=== PATIENT | female | born 1970 | race Caucasian/White ===

== ENCOUNTER → 2018-06-19 | Outpatient (CLI) | payer BC ==
--- NOTE | 2018-06-20 12:30 | Diagnostic Imaging Report ---
INDICATION: Screening. EXAMINATION: Digital mammogram bilateral screening with 3-D tomosynthesis. The current study was also evaluated with a Computer Aided Detection (CAD) system. This study was compared to the prior exam of 01/13/2017. At this time, there are no current complaints. FINDINGS: The fibroglandular tissue in both breasts is heterogeneously dense. This does limit the sensitivity of this exam. Overall, there does not appear to have been any significant change when compared to the prior study. No primary or secondary sign of malignancy is noted. IMPRESSION: There is no radiographic evidence for malignancy. ACR BI-RADS Category 1: Negative. Result letter will be mailed to the patient. Note: At least 10% of breast cancer is not imaged by mammography. Dictated by: Dictated on workstation # [id number]
== END ==
LOC: RAD 07:43
PROVIDERS: ATTEND Nurse Practitioner Primary Care
DX: Z12.31 Encounter for screening mammogram for malignant neoplasm of breast (principal)
CPT/HCPCS: 77067

== ENCOUNTER → 2020-05-08 | Outpatient (CLI) | payer BC, OTHER ==
--- NOTE | 2020-05-08 17:10 | Diagnostic Imaging Report ---
INDICATION: Routine screening. COMPARISON is made with prior mammograms of 06/29/2018 and 01/13/2017. 2-D and 3-D bilateral screening mammography was performed with CAD. Scattered fibroglandular densities are identified bilaterally. The parenchymal pattern is stable. No mass or malignant appearing microcalcifications are seen. Axillae are unremarkable. IMPRESSION: BI-RADS Category 1. No mammographic features suspicious for malignancy are identified. ACR BI-RADS Category 1: Negative. Result letter will be mailed to the patient. Note: At least 10% of breast cancer is not imaged by mammography. Dictated by: Dictated on workstation # [id number]
== END ==
LOC: RAD 08:00
PROVIDERS: ATTEND Nurse Practitioner Family
DX: Z12.31 Encounter for screening mammogram for malignant neoplasm of breast (principal)
CPT/HCPCS: 77063; 77067

== ENCOUNTER 2021-03-02 10:42 | Outpatient (CLI) | payer OTHER ==
[~2021-03-02] VITALS: Ht 162.6 cm; Wt 98.4 kg
[2021-03-02] MEDS ORDERED: UMEC62.5 IH (11:56)
[2021-03-02] MEDS ORDERED: FLUO20CA42 PO (11:56)
[2021-03-02] MEDS ORDERED: RT-ALBUINH IH (11:56)
[2021-03-02] MEDS ORDERED: FLUT16SP22 NS (11:56)
[2021-03-02] MEDS ORDERED: PSEU120T21 PO (11:56)
[2021-03-02] MEDS ORDERED: VITA100033 PO (11:56)
[2021-03-02] MEDS ORDERED: CETI10TA24 PO (11:56)
[2021-03-02] MEDS ORDERED: CRAN500T3 PO (11:56)
[2021-03-02] MEDS ORDERED: MULT-1136 PO (11:56)
== END 2021-03-02 14:26 | disposition home or self-care (01) ==
LOC: PREOP 10:42
PROVIDERS: ATTEND Surgery
DX: Z01.818 Encounter for other preprocedural examination (principal)

== ENCOUNTER 2021-03-10 08:43 | Day surgery (SDC) | payer OTHER ==
[~2021-03-10] VITALS: Ht 163 cm; Wt 98.0 kg
[2021-03-10] VITALS (7 sets, daily range): BP systolic 93–125; BP diastolic 51–71
[~2021-03-10 08:43] MED LIST: CETI10TA24 PO; CRAN500T3 PO; FLUO20CA42 PO; FLUT16SP22 NS; MULT-1136 PO; PSEU120T21 PO; RT-ALBUINH IH; UMEC62.5 IH; VITA100033 PO
[2021-03-10] MEDS ORDERED: LACTATED RINGERS 1,000 ML IV ONE ×2 (08:48→11:24)
[2021-03-10] MEDS ORDERED: LACTATED RINGERS 1,000 ML IV STA (08:52)
[2021-03-10] MEDS ORDERED: MIDAZOLAM 2 MG/2 ML (VERSED) VIAL ONE (11:19)
[2021-03-10] MEDS ORDERED: PROPOFOL INJECTION 50 ML IV ONE (11:19)
--- NOTE | 2021-03-10 11:59 | Progress Note-Post Operative ---
Post-Operative Progess Note Surgeon (s)/School Cleaner (s) Surgeon MARIVEL BURRELL DO School Cleaner: na Pre-Operative Diagnosis screening Post-Operative Diagnosis normal Procedure & Operative Findings Date of Procedure 03/10/21 Procedure Performed/Findings colonoscopy Anesthesia Type per graduate school dean Estimated Blood Loss Estimated blood loss (mL): none Specimens/Packing Specimens Removed none MARIVEL BURRELL DO Mar 10, 2021 11:59
--- NOTE | 2021-03-10 12:02 | Discharge Inst-Simple/Standard ---
Discharge Inst-Standard Patient Instructions/Follow Up Plan of Care/Instructions/FU: 10 years repeat colonoscopy if family history of colon cancer or personal history of polyps then 5 years. any issues before that be seen at that time. Activity as Tolerated: Yes Discharge Diet: Regular Diet MARIVEL BURRELL DO Mar 10, 2021 12:02
--- NOTE | 2021-03-10 13:00 | Anesthesia-General Post-Op ---
General Patient Condition Mental Status/LOC: Same as Preop Cardiovascular: Satisfactory Nausea/Vomiting: Absent Respiratory: Satisfactory Pain: Controlled Complications: Absent Post Op Complications Complications None Follow Up Care/Instructions Patient Instructions None needed. Anesthesia/Patient Condition Patient Condition Patient is doing well, no complaints, stable vital signs, no apparent adverse anesthesia problems. No complications reported per nursing. D/C home per [facility] Criteria: Yes RICKEY NIXON CRNA Mar 10, 2021 13:00
--- NOTE | 2021-03-10 18:09 | OPERATIVE REPORT ---
DATE OF SERVICE: 03/10/2021 PREOPERATIVE DIAGNOSIS: Screening colonoscopy. POSTOPERATIVE DIAGNOSIS: Normal colon. PROCEDURE: Colonoscopy. SURGEON: Marivel Grissom DO ANESTHESIA: Per DISTRIBUTION OPERATIONS MANAGER. ESTIMATED BLOOD LOSS: None. COMPLICATIONS: None. INDICATIONS: The patient is a 50-year-old female needing screening colonoscopy. She understands risks and benefits of procedure and wished to proceed. Consent was signed in the chart. DESCRIPTION OF PROCEDURE: The patient was taken to the endoscopy suite, placed in left lateral recumbent position. Timeout was performed. Digital rectal exam was performed. There were no palpable polyps, masses or ulcerations. Scope was inserted in the rectum and advanced all the way to cecum with minimal difficulty. Prep was adequate. Scope was then slowly retracted back. No polyps, masses or ulcerations in the cecum, ascending, transverse, descending and sigmoid colon. Once in the rectum, scope was retroflexed noting no other pathology. Scope was returned to its normal position, slowly withdrawn until completely removed. The patient tolerated procedure well without any complications, taken to recovery room in stable condition. RECOMMENDATIONS: The patient will need repeat colonoscopy in 10 years unless family history of colon cancer, which then be 5 years or personal history of colon polyps, which would be 5 years. Any problems prior to that be reevaluated at that time. Job ID: [id number] DocumentID: [id number] Dictated Date: 03/10/2021 12:30:34 Card Checker Date: 03/10/2021 18:08:31 Dictated By: MARIVEL GRISSOM DO
== END 2021-03-10 12:33 | disposition home or self-care (01) ==
LOC: ENDO 08:43
PROVIDERS: ATTEND Surgery
DX: Z12.11 Encounter for screening for malignant neoplasm of colon (principal); J44.9 Chronic obstructive pulmonary disease, unspecified; F17.210 Nicotine dependence, cigarettes, uncomplicated; F32.A Depression, unspecified; Z79.899 Other long term (current) drug therapy; Z80.3 Family history of malignant neoplasm of breast; Z82.49 Family history of ischemic heart disease and other diseases of the circulatory system
CPT/HCPCS: 84703

== ENCOUNTER → 2021-05-15 | Outpatient (CLI) | payer OTHER ==
--- NOTE | 2021-05-15 16:36 | Diagnostic Imaging Report ---
EXAMINATION: CT abdomen and pelvis without contrast. TECHNIQUE: Multiple contiguous axial images were obtained through the abdomen and pelvis without the use of intravenous contrast. All CT scans use one or more of the following dose optimizing techniques: automated exposure control, MA and/or KvP adjustment based on patient size and exam type or iterative reconstruction. HISTORY: LLQ ABD PAIN. COMPARISON: None available. FINDINGS: Lung bases: The lung bases are clear. Solid organs: The liver is normal. The gallbladder is normal. There is no biliary ductal dilation. Pancreas is normal. Spleen is normal. Adrenal glands are normal. The kidneys are normal without visualized calculus or hydronephrosis. Bowel: The stomach and small bowel are normal without obstruction. The colon and appendix are normal. Peritoneum: There is no intraperitoneal free fluid or free air. No suspicious lymphadenopathy. Vasculature: Normal without aneurysm. Musculoskeletal: No suspicious osseous lesion or compression fracture. Pelvis: The uterus and adnexa are normal. The urinary bladder is normal. IMPRESSION: No acute abnormality within the abdomen or pelvis. No visualized renal calculus or hydronephrosis. Dictated by: Dictated on workstation # [id number]
== END ==
LOC: RAD 15:15
PROVIDERS: ATTEND Nurse Practitioner Family
DX: R10.32 Left lower quadrant pain (principal)
CPT/HCPCS: 74176

== ENCOUNTER → 2021-11-11 | Outpatient (CLI) | payer OTHER ==
[~2021-11-11] MED LIST changes: -CRAN500T3 PO; +CRAN500T4 PO
[2021-11-11 14:04] VITALS: BP 134/70
--- NOTE | 2021-11-11 17:23 | Cardiology Stress Test Report ---
Stress Test Report Date of Procedure/Referring: Date of Procedure: Nov 11, 2021 [facility] Admitting Physician Admitting Physician: Attending Physician: Anton Bal DO Indications: CP Baseline Heart Rate: 67 Baseline Blood Pressure: Blood Pressure Systolic: 134 Blood Pressure Diastolic: 70 Baseline EKG: Baseline EKG: LBBB Summary/Conclusion: Summary: In summary, the patient started exercising with a baseline heart rate, blood pressure and EKG mentioned above Patient was able to exercise for a total of 3minutes on Bandar protocol, METs 4.6 Maximum heart rate 165 Maximum blood pressure 169/68 Stress EKG, Minimal nondiagnostic changes Recovery EKG , Return to baseline Conclusion: 1. Poor exercise tolerance for a total of 3 minutes on standard Bandar protocol, 4.6 METS achieving 97% of maximum expected heart rate 2. Baseline left bundle branch block persisted during test with nondiagnostic changes 3. Appropriate heart rate and blood pressure response to exercise return to baseline during recovery 4. Recommend evaluating Lexiscan Myoview stress test Copy Copies To 1: ANTON BAL DO Copies To 2: [facility]/ LISA HYATT MD Nov 11, 2021 17:23
== END ==
LOC: CARD 14:00
PROVIDERS: ATTEND Pediatrics
DX: R07.89 Other chest pain (principal)
CPT/HCPCS: 93017

== ENCOUNTER → 2021-12-04 | Outpatient (CLI) | payer OTHER ==
[~2021-12-04] VITALS: Ht 162.6 cm; Wt 95.5 kg
[~2021-12-04] MED LIST changes: +LIDOCAINE 1% INJ 10 ML VIAL INJ ONE
--- NOTE | 2021-12-04 12:57 | Diagnostic Imaging Report ---
INDICATION: Abnormal outside mammogram and ultrasound demonstrating suspicious nodules at the 2:00 and 3:00 location. PROCEDURE: The patient presents for ultrasound-guided biopsy. Patient was brought to the sonographic suite, placed on the table in the supine position. Ultrasound imaging of the left breast was performed to evaluate appropriate entry site. The lesion noted on the outside study at 3:00 location could not be detected today. Only normal-appearing fibroglandular tissue at the 3:00 location is identified. Therefore, biopsy was not performed at the 3:00 location. The suspicious region of hypoechogenicity and shadowing at the 2:00 location, 3 cm from the nipple was biopsied. A total of 4 core samples were obtained utilizing the 14-gauge Achieve needle. A marker clip was then deployed. Hemostasis was obtained using manual compression. The patient tolerated the procedure well and was sent for a post procedure mammogram in satisfactory condition. IMPRESSION: 1. Successful ultrasound-guided core biopsy of the area of hypoechogenicity and shadowing at the 12:00 location of the left breast, 8 cm from the nipple. Pathology results are currently pending. 2. The suspicious area at the 3:00 location could not be visualized on today's study, therefore, biopsy was not performed. Continued close interval follow-up of this area would be recommended. A repeat left mammogram and left breast ultrasound in 6 months would be recommended. Dictated by: Dictated on workstation # [id number]
--- NOTE | 2021-12-04 15:21 | Diagnostic Imaging Report ---
INDICATION: Left breast nodule, status post ultrasound guided biopsy. Unilateral left 2-D CC and ML mammography was performed after patient underwent left breast biopsy. There is a marker clip in the upper and outer aspect of the left breast. IMPRESSION: Marker clip placed in the upper outer left breast, status post ultrasound-guided core biopsy. Dictated by: Dictated on workstation # [id number]
== END ==
LOC: RAD 10:00
PROVIDERS: ATTEND Pediatrics
DX: N63.20 Unspecified lump in the left breast, unspecified quadrant (principal); Z98.890 Other specified postprocedural states
CPT/HCPCS: 19083; 77065; G0279

== ENCOUNTER → 2021-12-14 | Outpatient (CLI) | payer OTHER ==
[~2021-12-14] MED LIST changes: -LIDOCAINE 1% INJ 10 ML VIAL INJ ONE
== END ==
LOC: CARD 08:30
PROVIDERS: ATTEND Internal Medicine Cardiovascular Disease
DX: I10 Essential (primary) hypertension (principal); I25.10 Atherosclerotic heart disease of native coronary artery without angina pectoris
CPT/HCPCS: 93306

== ENCOUNTER → 2021-12-23 | Outpatient (CLI) | payer OTHER ==
[~2021-12-23] MED LIST changes: +CATHETER FLUSH 10 ML SYR IVP PRN; +REGADENOSON 0.4 MG/5 ML SYR (LEXISCAN) IV ONE
[2021-12-23 09:01] VITALS: BP 110/78
--- NOTE | 2021-12-23 11:50 | Cardiology Stress Test Report ---
Stress Test Report Date of Procedure/Referring: Date of Procedure: Dec 23, 2021 [facility] Admitting Physician Admitting Physician: Attending Physician: Lisa Eric MD Indications: HTN Baseline Heart Rate: 55 Baseline Blood Pressure: Blood Pressure Systolic: 110 Blood Pressure Diastolic: 78 Baseline Vitals Vital Signs Date Time Temp Pulse Resp B/P (MAP) Pulse Ox O2 Delivery O2 Flow Rate FiO2 12/23/21 09:01 94 17 110/78 (89) 99 Room Air Baseline EKG: Baseline EKG: LBBB Summary After explaining the procedure to the patient, she signed a consent and then brought to the stress nuclear laboratory. Patient received 0.4 mg Lexiscan for stress test, ECG, heart rate and blood pressure were monitored continuously. Resting and stress dose of radio tracer were injected, imaging was acquired and reviewed in short axis, horizontal long axis and vertical long axis views. TID: 1.06 SSS: 5 SDS: 3 EF: 51 1. Patient tolerated Lexiscan well 2. Baseline left bundle branch block persisted during test 3. Breast attenuation with reversible ischemia involving the basal to mid anterior wall 4. Normal left ventricular size, ejection fraction 51% Copy Copies To 1: [facility]/LISA GUSTAFSON MD Dec 23, 2021 11:50
== END ==
LOC: CARD 07:30
PROVIDERS: ATTEND Internal Medicine Cardiovascular Disease
DX: I10 Essential (primary) hypertension (principal); I25.10 Atherosclerotic heart disease of native coronary artery without angina pectoris
CPT/HCPCS: 78452; 93017; A9502

== ENCOUNTER 2021-12-30 06:46 | Day surgery (SDC) | payer OTHER ==
[~2021-12-30] VITALS: Ht 162.6 cm; Wt 94.8 kg
[2021-12-30] VITALS (9 sets, daily range): BP systolic 109–128; BP diastolic 56–84
[~2021-12-30 06:46] MED LIST changes: -CATHETER FLUSH 10 ML SYR IVP PRN; +CHOL10007 PO; -FLUT16SP22 NS; +FLUT16SP22 NSEACH; -REGADENOSON 0.4 MG/5 ML SYR (LEXISCAN) IV ONE
[2021-12-30] MEDS ORDERED: NS IV 1000 ML 1,000 ML IV SCH ×3 (07:00→09:45)
[2021-12-30] MEDS ORDERED: NS IV 1000 ML 1,000 ML ONE (07:00)
[2021-12-30] MEDS ORDERED: LIDOCAINE 1% INJ 30 ML (XYLOCAINE) VIAL ONE (07:00)
[2021-12-30] MEDS ORDERED: HEParin (CATH LAB) 2,000 ML IV ONE (07:00)
[2021-12-30 07:22] LABS: HEMATOCRIT 39 % (35-52); HEMOGLOBIN 12.5 g/dL (11.5-16.0); MEAN CORPUSCULAR HEMOGLOBIN 27 pg (25-34); MEAN CORPUSCULAR HGB CONC 32 g/dL (32-36); MEAN CORPUSCULAR VOLUME 83 fL (80-99); MEAN PLATELET VOLUME 10.7 fL (9.0-12.2); PLATELET COUNT 344 10^3/uL (130-400); WHITE BLOOD COUNT 9.9 10^3/uL (4.3-11.0)
[2021-12-30 07:23] LABS: BILIRUBIN,URINE NEGATIVE (NEGATIVE); CLARITY,URINE CLEAR; COLOR,URINE YELLOW; GLUCOSE, URINE (UA) NEGATIVE (NEGATIVE); KETONES,URINE NEGATIVE (NEGATIVE); LEUKOCYTE ESTERASE ,URINE NEGATIVE (NEGATIVE); NITRITE,URINE NEGATIVE (NEGATIVE); PROTEIN,URINE NEGATIVE (NEGATIVE)
[2021-12-30 07:37] LABS: BACTERIA,URINE NEGATIVE /HPF
--- NOTE | 2021-12-30 07:48 | Cardiac Procedure Note-CS/ASA ---
Pre-Procedure Note Pre-Op Procedure Note Date of Available H&P: Dec 24, 2021 Date H&P Reviewed: Dec 30, 2021 Time H&P Reviewed: 07:30 History & Physical: H&P Reviewed, Patient Examed, No changes noted Pre-Operative Diagnosis: Coronary artery disease Conscious Sedation Pre-Proced Time 07:30 ASA Score 3 For ASA 3 and 4: Consider anesthesia and medical clearance. Also, for patients with a history of failed moderate sedation consider anesthesia. Airway Lungs Heart ASA score ASA 1: a normal healthy patient ASA 2: a patient with a mild systemic disease (mid diabetes, controlled hypertension, obesity ASA 3: a patient with a severe systemic disease that limits activity (angina, COPD, prior Myocardial infarction) ASA 4: a patient with an incapacitating disease that is a constant threat to life (CHF, renal failure) ASA 5: a moribund patient not expected to survive 24 hrs. (ruptured aneurysm) ASA 6: a declared brain- patient whose organs are being harvested. For emergent operations, add the letter E after the classification Mallampati Classification Grade 3 Sedation Plan Analgesia, Amnesia, Plan communicated to team members, Discussed options with patient/fam, Discussed risks with patient/fam The patient is an appropriate candidate to undergo the planned procedure, sedation, and anesthesia. The patient immediately re-assessed prior to indication. LISA HYATT MD Dec 30, 2021 07:48
[2021-12-30 07:50] LABS: BILIRUBIN,TOTAL 0.2 MG/DL (0.1-1.0); CALCIUM 9.3 MG/DL (8.5-10.1); CREATININE SERUM 0.79 MG/DL (0.60-1.30); POTASSIUM 4.3 MMOL/L (3.6-5.0); PROTHROMBIN TIME PATIENT 13.1 SEC (12.2-14.7); TOTAL PROTEIN 7.4 GM/DL (6.4-8.2)
[2021-12-30] MEDS ORDERED: VERAPAMIL 5 MG/2 ML (CALAN) VIAL IV ONE (08:00)
[2021-12-30] MEDS ORDERED: MIDAZOLAM 5 MG/5 ML (VERSED) VIAL ONE (08:01)
[2021-12-30] MEDS ORDERED: NITRO DRIP 25000 MCG/D5W 250 ML IV ONE (08:01)
[2021-12-30] MEDS ORDERED: fentaNYL INJ 100 MCG/2 ML AMP ONE (08:01)
[2021-12-30] MEDS ORDERED: HEParin 1000 UNIT/ML (10ML VIAL) FOR BOLUS ONE (08:01)
--- NOTE | 2021-12-30 08:05 | Diagnostic Imaging Report ---
INDICATION: Abnormal stress test. FINDINGS: The heart and lungs appeared normal. No failure. IMPRESSION: Negative Dictated by: Dictated on workstation # [id number]
[2021-12-30] MEDS ORDERED: PATIENT MAY USE OWN MEDS, ALL PO SCH (09:45)
--- NOTE | 2021-12-30 09:47 | Discharge Inst-Post CATH ---
Discharge Inst-CATH/EP Problems Reviewed?: Yes Post Cardiac Cath/EP D/C Inst Follow Up/Plan Appointment with Dr. Eric's office in 2 to 4 weeks <b>CARDIAC CATH/EP PROCEDURE DISCHARGE INSTRUCTIONS</b> ACTIVITY * Go Home directly and rest. * Limit activity of the leg (or wrist if it was used) for 7 days including aer obics, swimming, jogging, bicycling, etc. * Restrict stair-climbing for 7 days if possible, if not, climb up with your non-cath leg, then bring together on the same step. * Avoid lifting, pushing, pulling or excessive movement of the affected extremi ty for 7 days. * Customary sexual activity may be resumed after 2 days-use caution not to use a position that strains or causes pain to the affected extremity. * No driving for 24 hours. * NO SMOKING. * Avoid straining for bowel movements for 7 days. * Gentle walking on level ground is allowed. * Returning to work will depend on the type of procedure and the results. Your doctor will discuss this with you. CALL YOUR DOCTOR FOR ANY OF THE FOLLOWING: *If bleeding from the puncture site occurs- Apply gentle pressure to site with clean cloth and call your doctor or EMS. * If a knot or lump forms under the skin, increases in size, or causes pain. * If bruising appears to be worsening or moving further down your leg instead of disappearing. * Temperature above 101 F. CARE OF YOUR GROIN INCISION; * Bruising or purple discoloration of the skin near the puncture site is common. * You may shower only, no bathtub bathing for 5 days. Be careful to avoid slipping as your leg may feel stiff. * If a closure device was used on your femoral artery, please see the attached guide regarding care of the device and your leg. * Leave dressing on FOR 24 hours. CARE OF YOUR WRIST INCISION; * Bruising or purple discoloration of the skin near the puncture site is common. * You may shower. * DO NOT submerge wrist. * Leave dressing on FOR 24 hours. LISA ERIC MD Dec 30, 2021 09:47
--- NOTE | 2021-12-30 09:50 | Cardiac Cath Report ---
Cardiac Cath Report Physician (s)/Water Main Pipe Layer (s) Physician LISA HYATT MD Pre-Procedure Diagnosis Pre-Procedure Diagnosis: Coronary artery disease Post-Procedure Note Procedure Start Date: Dec 30, 2021 Name of Procedure: Left heart catheterization Findings/Procedure Note PROCEDURE NOTE: 51-year-old lady with history of recurrent chest pain, had an abnormal stress test with anterior wall ischemia, scheduled for cardiac catheterization possible PTCA. After explaining the procedure to the patient, all pros and cons were explained, all questions were answered. The patient signed the consent and then she was placed on the cardiac catheterization laboratory. Groin was prepped SL fashion local anesthesia was used. Sheath placed in the right radial artery, [place] catheter was advanced to the left ventricular cavity, pressure was measured, pullback LV to aorta was done, engage the right coronary system, I was unable to engage the left coronary system I used multiple different catheters without success due to the small aortic arch. I decided to access the groin and 6 Chinese sheath was placed in the right femoral artery, Reinaldo left was advanced to the left coronary system and angiogram was done. At the end of the procedure the sheath was removed. Vascular band was used on the radial artery and closure device deployed in the femoral artery FINDINGS: Hemodynamics LV 114/7, end-diastolic pressure of 7 Aorta 114/76 mean of 87 ANATOMY: Left Main is free of obstructive disease Left Anterior Descending slightly tortuous with mild disease nonobstructive disease Left Circumflex has mild disease nonobstructive disease Right Coronary Artery is dominant artery with mild disease nonobstructive disease LV Gram was not done, pressure was measured CONCLUSION: 1. Mild coronary artery disease nonobstructive disease 2. Normal left ventricular end-diastolic pressure DISCUSSION AND RECOMMENDATION: Abnormal stress test is probably due to extracardiac attenuation. Patient had a small aortic arch required multiple catheter and ended up with the groin access in addition to the radial access Anesthesia Type: Conscious Sedation Estimated blood loss (mL): 25 ml Contrast Amount: 52 ml Total Radiation Dose: 620 mGy Post-Procedure Diagnosis Post-operative diagnosis: Chest pain Coronary artery disease Hypertension LISA HYATT MD Dec 30, 2021 09:50
[2021-12-30] MEDS ORDERED: oxyCODONE/APAP 5/325MG (PERCOCET 5) TABLET PO NR (11:00)
== END 2021-12-30 14:00 | disposition home or self-care (01) ==
LOC: CATH 06:46
PROVIDERS: ATTEND Internal Medicine Cardiovascular Disease
DX: I25.10 Atherosclerotic heart disease of native coronary artery without angina pectoris (principal); I10 Essential (primary) hypertension; F17.210 Nicotine dependence, cigarettes, uncomplicated; J44.9 Chronic obstructive pulmonary disease, unspecified; I44.7 Left bundle-branch block, unspecified
CPT/HCPCS: 71045; 80053; 80061; 81000; 85027; 85610; 85730; 87081; 93005; 93458; C1760; C1894 ×2; 36415

== ENCOUNTER → 2022-03-25 | Outpatient (CLI) | payer OTHER ==
[~2022-03-25] VITALS: Ht 162.6 cm; Wt 96.6 kg
[~2022-03-25] MED LIST changes: +ALBU8.5H6 IH; -RT-ALBUINH IH
== END | disposition home or self-care (01) ==
LOC: PREOP 05:38
PROVIDERS: ATTEND Surgery
DX: Z01.818 Encounter for other preprocedural examination (principal)

== ENCOUNTER 2022-04-01 12:13 | Day surgery (SDC) | payer OTHER ==
[~2022-04-01] VITALS: Ht 162.6 cm; Wt 96.6 kg
[~2022-04-01 12:13] MED LIST changes: +PANT40TA52 PO; +TIOT4MIS5 IH
[2022-04-01] MEDS ORDERED: LACTATED RINGERS 1,000 ML IV STA (12:27)
[2022-04-01] MEDS ORDERED: LACTATED RINGERS 1,000 ML IV PRN (12:30)
[2022-04-01 12:40] VITALS: BP 122/60
[2022-04-01] MEDS ORDERED: HURRICAINE EXT TUBE (BENZOCAINE) XX PRN (12:45)
[2022-04-01] MEDS ORDERED: MIDAZOLAM 2 MG/2 ML (VERSED) VIAL ONE (13:45)
[2022-04-01] MEDS ORDERED: PROPOFOL INJECTION 50 ML IV ONE (13:45)
--- NOTE | 2022-04-01 14:38 | Progress Note-Pre Operative ---
Pre-Operative Progress Note Date of Available H&P: Mar 22, 2022 Date H&P Reviewed: Apr 01, 2022 Time H&P Reviewed: 14:38 History & Physical: H&P Reviewed, Patient Examed, No changes noted Pre-Operative Diagnosis: atypical chest pain. MARIVEL BURRELL DO Apr 01, 2022 14:38
[2022-04-01 14:55] VITALS: BP 112/58
--- NOTE | 2022-04-01 14:56 | Discharge Inst-Simple/Standard ---
Discharge Inst-Standard Patient Instructions/Follow Up Plan of Care/Instructions/FU: [place] - 2 weeks Activity as Tolerated: Yes Discharge Diet: Regular Diet MARIVEL BURRELL DO Apr 01, 2022 14:56
[2022-04-01 15:00] VITALS: BP 120/53
[2022-04-01 15:05] VITALS: BP 96/52
--- NOTE | 2022-04-01 15:07 | Anesthesia-General Post-Op ---
MAC Patient Condition Mental Status/LOC: Same as Preop Cardiovascular: Satisfactory Nausea/Vomiting: Absent Respiratory: Satisfactory Pain: Controlled Complications: Absent Post Op Complications Complications None Follow Up Care/Instructions Patient Instructions None needed. Anesthesiology Discharge Order Discharge Order Patient is doing well, no complaints, stable vital signs, no apparent adverse anesthesia problems. No complications reported per nursing. BRO NEWMAN CRNA Apr 01, 2022 15:07
[2022-04-01 15:10] VITALS: BP 106/57
[2022-04-01 15:38] VITALS: BP 106/57
--- NOTE | 2022-04-02 01:41 | OPERATIVE REPORT ---
DATE OF SERVICE: 04/01/2022 PREOPERATIVE DIAGNOSIS: Atypical chest pain. POSTOPERATIVE DIAGNOSIS: Normal EGD, possible reflux esophagitis. PROCEDURE: EGD with biopsies. SURGEON: Marivel Grissom DO ANESTHESIA: Per MODEL MAKER. ESTIMATED BLOOD LOSS: None. COMPLICATIONS: None. INDICATIONS: The patient is a 52-year-old female with atypical chest pain. She was recommended EGD by Cardiology for further workup. She understands risks and benefits of procedure and wishes to proceed. Consent was signed and in the chart. DESCRIPTION OF PROCEDURE: The patient was taken to the endoscopy suite, placed in the left lateral recumbent position and a timeout was performed. Scope was inserted in the mouth, down the esophagus, stomach and into the duodenum without difficulty. No polyps, masses or ulcerations within the duodenum. Scope was slowly retracted back in the stomach where it was further insufflated. No polyps, masses or ulcerations. Biopsy of the antrum was obtained. Scope was retroflexed noting no other pathology. Scope was returned to its normal position, slowly withdrawn from distal esophagus, questionable changes of some reflux esophagitis. No polyps, masses or ulcerations. Biopsy of the GE junction was obtained. Scope was then slowly retracted back until completely removed, noting no other pathology. The patient tolerated the procedure well without complications, taken to recovery room in stable condition. RECOMMENDATIONS: Await biopsy results. Consider workup of the gallbladder. Further recommendations pending biopsy results and symptoms. Job ID: [id number] DocumentID: [id number] Dictated Date: 04/01/2022 22:00:43 Coat Agent Date: 04/02/2022 01:39:00 Dictated By: MARIVEL GRISSOM DO
== END 2022-04-01 15:45 | disposition home or self-care (01) ==
LOC: ENDO 12:13
PROVIDERS: ATTEND Surgery
DX: R07.89 Other chest pain (principal); K29.70 Gastritis, unspecified, without bleeding; K20.90 Esophagitis, unspecified without bleeding; F17.210 Nicotine dependence, cigarettes, uncomplicated; Z79.899 Other long term (current) drug therapy
CPT/HCPCS: 84703

== ENCOUNTER → 2022-06-11 | Outpatient (CLI) | payer OTHER ==
--- NOTE | 2022-06-11 16:18 | Diagnostic Imaging Report ---
INDICATION: Left breast lump. Patient has had prior biopsy of the left breast. Sonographic interrogation from the 12 to 3 o'clock location was performed. No discrete mass is identified. No sonographic abnormality is identified. The area biopsied at the 12 o'clock location of the left breast is unremarkable on today's study. No fluid collections are seen. IMPRESSION: BI-RADS Category 1 No sonographic abnormality is identified. ACR BI-RADS Category 1: Negative. Result letter will be mailed to the patient. Note: At least 10% of breast cancer is not imaged by mammography. Dictated by: Dictated on workstation # [id number]
--- NOTE | 2022-06-11 16:27 | Diagnostic Imaging Report ---
Indication: Six-month follow-up left breast biopsy. Correlation is made with prior mammograms from 05/08/2020 and 12/04/2021. Unilateral left 2-D and 3-D diagnostic mammography was performed with CAD. Scattered fibroglandular densities are identified in the left breast. Marker clip in the upper outer left breast mid depth is noted. No new mass or malignant-appearing microcalcifications are seen. Left axilla is unremarkable. IMPRESSION: BI-RADS 0 Stable left mammogram status post left breast biopsy 6 month earlier. Left breast ultrasound of the 12 and 3:00 locations of the left breast is recommended and will be performed today. ACR BI-RADS Category 0: Incomplete. (Needs additional imaging evaluation). Result letter will be mailed to the patient. Note: At least 10% of breast cancer is not imaged by mammography. Dictated on workstation # [id number]
== END ==
LOC: RAD 14:15
PROVIDERS: ATTEND Internal Medicine
DX: N63.20 Unspecified lump in the left breast, unspecified quadrant (principal)
CPT/HCPCS: 76642; 77065; G0279

== ENCOUNTER → 2022-06-14 | Outpatient (CLI) | payer OTHER ==
[2022-06-14 07:25] LABS: BASOPHILS # (AUTO) 0.1 10^3/uL (0.0-0.1); BASOPHILS % (AUTO) 1 % (0-10); EOSINOPHILS # (AUTO) 0.2 10^3/uL (0.0-0.3); EOSINOPHILS % (AUTO) 2 % (0-10); HEMATOCRIT 38 % (35-52); HEMOGLOBIN 12.3 g/dL (11.5-16.0); LYMPHOCYTES # (AUTO) 1.8 10^3/uL (1.0-4.0); LYMPHOCYTES % (AUTO) 19 % (12-44); MEAN CORPUSCULAR HEMOGLOBIN 26 pg (25-34); MEAN CORPUSCULAR HGB CONC 32 g/dL (32-36); MEAN CORPUSCULAR VOLUME 81 fL (80-99); MEAN PLATELET VOLUME 11.1 fL (9.0-12.2); MONOCYTES # (AUTO) 0.6 10^3/uL (0.0-1.0); MONOCYTES % (AUTO) 7 % (0-12); NEUTROPHILS # (AUTO) 6.5 10^3/uL (1.8-7.8); NEUTROPHILS % (AUTO) 71 % (42-75); PLATELET COUNT 327 10^3/uL (130-400); WHITE BLOOD COUNT 9.1 10^3/uL (4.3-11.0)
[2022-06-14 08:40] LABS: ALBUMIN 4.1 GM/DL (3.2-4.5); BILIRUBIN,TOTAL 0.2 MG/DL (0.1-1.0); CALCIUM 9.2 MG/DL (8.5-10.1); CREATININE SERUM 0.78 MG/DL (0.60-1.30); POTASSIUM 4.1 MMOL/L (3.6-5.0); TOTAL PROTEIN 7.2 GM/DL (6.4-8.2)
[2022-06-14 09:00] LABS: FREE T4 (FREE THYROXINE) 0.95 NG/DL (0.70-1.48)
== END ==
LOC: LAB 07:07
PROVIDERS: ATTEND Internal Medicine
DX: Z00.00 Encounter for general adult medical examination without abnormal findings (principal); R73.9 Hyperglycemia, unspecified; E03.9 Hypothyroidism, unspecified; E78.00 Pure hypercholesterolemia, unspecified; E78.1 Pure hyperglyceridemia
CPT/HCPCS: 36415; 80053; 80061; 83036; 84439; 84443; 85025

== ENCOUNTER → 2022-06-19 | Outpatient (CLI) | payer OTHER ==
--- NOTE | 2022-06-19 12:15 | Diagnostic Imaging Report ---
HISTORY: Right foot pain TECHNIQUE: 3 views of the right foot. COMPARISON: None FINDINGS: No acute fracture or dislocation is seen in the right foot. Alignment is normal. Joint spaces are preserved. There is a tiny type I accessory navicular. There is plantar posterior calcaneal enthesopathy. An os trigonum is noted. IMPRESSION: No acute osseous abnormalities seen in the right foot. Dictated by: Dictated on workstation # [id number]
== END ==
LOC: RAD 11:33
PROVIDERS: ATTEND Internal Medicine
DX: M79.671 Pain in right foot (principal)
CPT/HCPCS: 73630

== ENCOUNTER → 2022-12-14 | Outpatient (CLI) | payer OTHER ==
[2022-12-14 08:11] LABS: ALBUMIN 3.8 GM/DL (3.2-4.5); BILIRUBIN,TOTAL 0.2 MG/DL (0.1-1.0); CALCIUM 8.4 MG/DL (8.5-10.1); CREATININE SERUM 0.79 MG/DL (0.60-1.30); POTASSIUM 3.8 MMOL/L (3.6-5.0); TOTAL PROTEIN 7.2 GM/DL (6.4-8.2)
[2022-12-14 08:30] LABS: FREE T4 (FREE THYROXINE) 0.91 NG/DL (0.70-1.48)
== END ==
LOC: LAB 07:32
PROVIDERS: ATTEND Internal Medicine
DX: Z00.00 Encounter for general adult medical examination without abnormal findings (principal); E78.1 Pure hyperglyceridemia; E78.00 Pure hypercholesterolemia, unspecified; E03.9 Hypothyroidism, unspecified; R73.9 Hyperglycemia, unspecified
CPT/HCPCS: 36415; 80053; 82465; 83036; 84439; 84443; 84478

== ENCOUNTER → 2023-01-17 | Outpatient (CLI) | payer OTHER ==
--- NOTE | 2023-01-17 15:51 | Diagnostic Imaging Report ---
INDICATION: Routine screening. Comparison is made with prior mammogram from 05/08/2020 and 06/19/2018. 2-D and 3-D bilateral screening mammography was performed with CAD. Scattered fibroglandular densities are identified bilaterally. The overall parenchymal pattern is stable. There is a biopsy marker clip in the upper left breast. No mass or malignant-appearing microcalcifications are seen. Axillae are unremarkable. IMPRESSION: No mammographic features suspicious for malignancy are identified. ACR BI-RADS Category 2: Benign findings. Result letter will be mailed to the patient. Note: At least 10% of breast cancer is not imaged by mammography. BI-RADS Category 2 Dictated by: Dictated on workstation # [id number]
== END ==
LOC: RAD 10:15
PROVIDERS: ATTEND Internal Medicine
DX: Z12.31 Encounter for screening mammogram for malignant neoplasm of breast (principal)
CPT/HCPCS: 77063; 77067